=== PATIENT | male | born 1965 | race Caucasian/White ===

== ENCOUNTER 2019-02-03 07:20 | Emergency (ER) | payer SELFPAY ==
[~2019-02-03 07:20] MED LIST: AMOX-362 PO; AMOX-559 PO; CYCL10TA29 PO; HYDR-318 PO; HYDR-653 PO; KET10 PO; LOR5/325 PO; PENI-24 PO; PER PO
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
[2019-02-03] MEDS ORDERED: DIAZEPAM 5 MG TAB PO ONE (07:50)
[2019-02-03 08:36] VITALS: BP 142/99
== END 2019-02-03 08:41 | disposition home or self-care (01) ==
LOC: ER 07:40
DX: R51 Headache (principal)
CPT/HCPCS: 99283